=== PATIENT | male | born 2000 | race Two or more races ===

== ENCOUNTER 2020-09-22 11:08 | Emergency (ER) | payer OTHER ==
[~2020-09-22] VITALS: Ht 165.1 cm; Wt 59.0 kg
[2020-09-22 11:28] VITALS: BP 103/66
[2020-09-22] MEDS ORDERED: BACITRACIN ZINC OINT PACKET 1 EA PACKET TP ONE ×2 (11:48→12:00)
--- NOTE | 2020-09-22 11:53 | NUR ---
finger cleansed and dermabond applied. Covered with dry dressing and splint.
--- NOTE | 2020-09-22 11:55 | NUR ---
Patient discharged to home in stable condition. Written and verbal after care instructions given. Patient verbalizes understanding of instruction.
== END 2020-09-22 11:54 | disposition home or self-care (01) ==
LOC: ER 11:13
DX: S61.210A Laceration without foreign body of right index finger without damage to nail, initial encounter (principal); W22.01XA Walked into wall, initial encounter; Y93.89 Activity, other specified; Y92.89 Other specified places as the place of occurrence of the external cause; Y99.8 Other external cause status

== ENCOUNTER 2022-05-20 23:22 | Emergency (ER) | payer OTHER ==
[~2022-05-20] VITALS: Ht 167.6 cm; Wt 54.4 kg
[2022-05-21] VITALS: BP 136/56
[2022-05-21] MEDS ORDERED: AMOX500C2 PO (00:05)
[2022-05-21] MEDS ORDERED: AMOXICILLIN TRIHYDRATE 250 MG CAPSULE ONE (00:08)
[2022-05-21] MEDS ORDERED: AMOXICILLIN TRIHYDRATE 500 MG CAPSULE PO ONE (00:30)
== END 2022-05-21 00:13 | disposition home or self-care (01) ==
LOC: ER 23:27
DX: K08.89 Other specified disorders of teeth and supporting structures (principal); Z79.899 Other long term (current) drug therapy

== ENCOUNTER 2023-05-18 20:45 | Emergency (ER) | payer OTHER ==
[~2023-05-18] VITALS: Ht 167.6 cm; Wt 53.5 kg
[~2023-05-18 20:45] MED LIST: AMOX500C2 PO
[2023-05-18 21:08] VITALS: TEMP 98.1
[2023-05-18] MEDS ORDERED: IBUP-1955 PO (21:12)
[2023-05-18] MEDS ORDERED: PENI500T PO (21:12)
[2023-05-18] MEDS ORDERED: IBUPROFEN 600 MG TABLET ONE (21:16)
[2023-05-18] MEDS ORDERED: IBUPROFEN 600 MG TABLET PO ONE (21:30)
[2023-05-18] MEDS ORDERED: PENICILLIN V POTASSIUM 500 MG TABLET PO ONE (21:30)
[2023-05-18 21:52] VITALS: BP 110/60; O2SAT 98
[2023-05-18] MEDS ORDERED: CLINDAMYCIN HCL 150 MG CAPSULE PO ONE (22:00)
== END 2023-05-18 21:54 | disposition home or self-care (01) ==
LOC: ER 20:57
DX: K04.7 Periapical abscess without sinus (principal)